=== PATIENT | female | born 1950 | race Two or more races ===

== ENCOUNTER 2024-05-26 21:58 | Inpatient (IN) | payer OTHER ==
[~2024-05-26] VITALS: Ht 157.5 cm; Wt 64.4 kg
[2024-05-26] MEDS ORDERED: PANTOPRAZOLE 40 MG VIAL ONE (22:58)
[2024-05-26 23:00] LABS: BASOPHILS % (AUTO) 0.3 % (0.0-2.0); EOSINOPHILS % (AUTO) 0.5 % (0.0-6.0); HEMATOCRIT 45 % (33-45); HEMOGLOBIN 14.5 g/dL (11.5-14.8); LYMPHOCYTES # (AUTO) 2.2 K/uL (0.8-4.8); LYMPHOCYTES % (AUTO) 25.8 % (20.0-44.0); MEAN CORPUSCULAR HEMOGLOBIN 28 PG (26.0-33.0); MEAN CORPUSCULAR HGB CONC 33 g/dl (31.0-36.0); MEAN CORPUSCULAR VOLUME 87 fL (82-100); MONOCYTES # (AUTO) 0.4 K/uL (0.1-1.30); MONOCYTES % (AUTO) 4.5 % (2.0-12.0); NEUTROPHILS % (AUTO) 68.9 % (43.0-81.0); PLATELET COUNT (AUTO) 287 K/uL (150-450); RED BLOOD CELL COUNT(AUTO) 5.13 MIL/uL (4.0-5.2); RED CELL DISTRIBUTION WIDTH 14.3 % (11.5-15.0); WHITE BLOOD COUNT (AUTO) 8.7 K/uL (4.3-11.0)
[2024-05-26] MEDS ORDERED: ONDANSETRON HCL/PF 4 MG/2 ML VIAL ONE (23:00)
[2024-05-26] MEDS: PANTOPRAZOLE 40 MG VIAL IV ONE (23:13)
[2024-05-26] MEDS: ONDANSETRON HCL/PF - ER 4 MG/2 ML VIAL IV ONE (23:13)
[2024-05-26 23:23] LABS: CALCIUM, SERUM 9.7 mg/dL (8.5-10.1); CARBON DIOXIDE 21 mmol/L (21-32); CHLORIDE 106 mmol/L (98-107); CREATININE 0.8 mg/dL (0.6-1.3); GLUCOSE 154 mg/dL (74-106); POTASSIUM 3.1 mmol/L (3.5-5.1); SODIUM SERUM 142 mmol/L (136-145); UREA NITROGEN, BLOOD 19 mg/dL (7-18)
[2024-05-26 23:32] LABS: ALANINE AMINOTRANSFERASE 24 U/L (12-78); ALBUMIN 3.7 g/dL (3.4-5.0); ALKALINE PHOSPHATASE 82 U/L (46-116); ASPARTATE AMINOTRANSFERASE 19 U/L (15-37); BILIRUBIN,TOTAL 0.8 mg/dL (0.2-1.0); NT-PRO BNP 191 pg/mL (0-125); TOTAL PROTEIN, SERUM 8.2 g/dL (6.4-8.2)
[2024-05-26 23:35] LABS: SALICYLATE 1.4 mg/dL (2.8-20.0)
[2024-05-26 23:36] LABS: ACETAMINOPHEN <10 ug/ml (10-30); ALCOHOL, BLOOD < 10 mg/dL (0-10)
[2024-05-27] MEDS ORDERED: POTASSIUM CL. PREMIX PERIPHER. 50 ML ONE ×2 (00:27→01:43)
[2024-05-27] MEDS ORDERED: Magnesium 1GM/D5W 100ML PREMIX 100 ML IV ONE ×2 (00:31→01:43)
[2024-05-27] MEDS: POTASSIUM CL. PREMIX PERIPHER. 50 ML IV SCH (00:44)
[2024-05-27] MEDS: Magnesium 1GM/D5W 100ML PREMIX 100 ML IV SCH ×3 (00:55→11:39)
[2024-05-27 01:20] LABS: APPEARANCE,URINE CLEAR (CLEAR); BILIRUBIN,URINE NEGATIVE (NEGATIVE); BLOOD, URINE NEGATIVE Ery/uL (NEGATIVE); COLOR,URINE YELLOW (YELLOW); KETONES,URINE NEGATIVE (NEGATIVE); LEUKOCYTE ESTERASE ,URINE 1+ (NEGATIVE); NITRITE, URINE NEGATIVE (NEGATIVE); PH,URINE 5.5 (5.0-8.0); PROTEIN,URINE NEGATIVE (NEGATIVE); UGLUCOSE NEGATIVE (NEGATIVE); UROBILINOGEN,URINE 0.2 EU/dL (0.2)
[2024-05-27 01:27] LABS: ADD URINE CULTURE YES; BACTERIA,URINE Rare /HPF (None Seen); SQUAMOUS EPITHELIAL CELL,UR Few /HPF (None Seen)
[2024-05-27 01:44] LABS: AMPHETAMINE, URINE NEGATIVE (NEGATIVE); BARBITURATE, URINE NEGATIVE (NEGATIVE); BENZODIAZEPINE, URINE NEGATIVE (NEGATIVE); CANNABINOID, URINE NEGATIVE (NEGATIVE); COCCAINE, URINE NEGATIVE (NEGATIVE); OPIATE, URINE NEGATIVE (NEGATIVE); PHENCYCLIDINE SCREEN,URINE NEGATIVE (NEGATIVE)
[2024-05-27] MEDS ORDERED: Z GUARD REMEDY 4 OZ OINT TP PRN (02:30)
[2024-05-27] MEDS ORDERED: ONDANSETRON HCL/PF 4 MG/2 ML VIAL IVP PRN (02:30)
[2024-05-27 06:45] LABS: BASOPHILS % (AUTO) 0.3 % (0.0-2.0); HEMATOCRIT 44 % (33-45); HEMOGLOBIN 14.1 g/dL (11.5-14.8); LYMPHOCYTES # (AUTO) 0.8 K/uL (0.8-4.8); LYMPHOCYTES % (AUTO) 7.6 % (20.0-44.0); MEAN CORPUSCULAR HEMOGLOBIN 28 PG (26.0-33.0); MEAN CORPUSCULAR HGB CONC 32 g/dl (31.0-36.0); MEAN CORPUSCULAR VOLUME 88 fL (82-100); MONOCYTES # (AUTO) 0.5 K/uL (0.1-1.30); MONOCYTES % (AUTO) 5.2 % (2.0-12.0); NEUTROPHILS % (AUTO) 86.9 % (43.0-81.0); PLATELET COUNT (AUTO) 251 K/uL (150-450); RED BLOOD CELL COUNT(AUTO) 4.99 MIL/uL (4.0-5.2); RED CELL DISTRIBUTION WIDTH 14.3 % (11.5-15.0); WHITE BLOOD COUNT (AUTO) 10.3 K/uL (4.3-11.0)
[2024-05-27 06:57] LABS: CALCIUM, SERUM 7.9 mg/dL (8.5-10.1); CARBON DIOXIDE 19 mmol/L (21-32); CHLORIDE 114 mmol/L (98-107); CREATININE 0.7 mg/dL (0.6-1.3); GLUCOSE 128 mg/dL (74-106); POTASSIUM 3.7 mmol/L (3.5-5.1); SODIUM SERUM 142 mmol/L (136-145); UREA NITROGEN, BLOOD 18 mg/dL (7-18)
[2024-05-27 07:11] LABS: ALBUMIN 2.5 g/dL (3.4-5.0); ALKALINE PHOSPHATASE 61 U/L (46-116); ASPARTATE AMINOTRANSFERASE 14 U/L (15-37); BILIRUBIN,TOTAL 0.9 mg/dL (0.2-1.0); TOTAL PROTEIN, SERUM 6.4 g/dL (6.4-8.2)
[2024-05-27 07:12] LABS: ACETAMINOPHEN <10 ug/ml (10-30)
[2024-05-27 07:18] LABS: ALANINE AMINOTRANSFERASE 14 U/L (12-78); ALBUMIN 2.7 g/dL (3.4-5.0); ALKALINE PHOSPHATASE 61 U/L (46-116); ASPARTATE AMINOTRANSFERASE 14 U/L (15-37); BILIRUBIN,DIRECT 0.2 mg/dL (0.0-0.2); BILIRUBIN,TOTAL 0.8 mg/dL (0.2-1.0); CALCIUM, SERUM 8.1 mg/dL (8.5-10.1); CARBON DIOXIDE 20 mmol/L (21-32); CHLORIDE 113 mmol/L (98-107); CREATININE 0.7 mg/dL (0.6-1.3); GLUCOSE 127 mg/dL (74-106); MAGNESIUM 2.4 mg/dL (1.8-2.4); PHOSPHORUS 2.4 mg/dL (2.5-4.9); POTASSIUM 3.7 mmol/L (3.5-5.1); SODIUM SERUM 143 mmol/L (136-145); TOTAL PROTEIN, SERUM 6.4 g/dL (6.4-8.2); UREA NITROGEN, BLOOD 18 mg/dL (7-18)
[2024-05-27 07:29] LABS: ALANINE AMINOTRANSFERASE 22 U/L (12-78)
[2024-05-27 08:00] VITALS: BP 159/87; TEMP 97.5; O2SAT 96
[2024-05-27] MEDS: PANTOPRAZOLE 40 MG VIAL IV SCH (08:06)
[2024-05-27] MEDS ORDERED: clonazePAM 0.5 MG TABLET PO PRN (14:00)
[2024-05-27] MEDS ORDERED: SILVER SULFADIAZINE CREAM 25 GM TUBE TP SCH (15:00)
[2024-05-27 16:00] VITALS: BP 121/67; TEMP 99; O2SAT 99
[2024-05-27] MEDS: SILVER SULFADIAZINE CREAM 25 GM TUBE TP SCH (16:01)
[2024-05-27] MEDS: Sodium Phosphate 15 MMOL in IV NS 0.9% 245 ML IV SCH (16:04)
[2024-05-27 20:00] VITALS: BP 126/75; TEMP 98.2; O2SAT 99
[2024-05-27] MEDS: IV NS 0.9% 1,000 ML IV PRN (21:38)
[2024-05-28 06:36] LABS: BASOPHILS % (AUTO) 0.2 % (0.0-2.0); EOSINOPHILS # (AUTO) 0.1 K/uL (0.0-0.7); EOSINOPHILS % (AUTO) 1.3 % (0.0-6.0); HEMATOCRIT 35 % (33-45); HEMOGLOBIN 11.8 g/dL (11.5-14.8); MEAN CORPUSCULAR HEMOGLOBIN 37 PG (26.0-33.0); MEAN CORPUSCULAR HGB CONC 34 g/dl (31.0-36.0); MEAN CORPUSCULAR VOLUME 108 fL (82-100); MONOCYTES # (AUTO) 0.5 K/uL (0.1-1.30); NEUTROPHILS # (AUTO) 3.8 K/uL (1.8-8.9); NEUTROPHILS % (AUTO) 70.5 % (43.0-81.0); PLATELET COUNT (AUTO) 190 K/uL (150-450); RED BLOOD CELL COUNT(AUTO) 3.19 MIL/uL (4.0-5.2); RED CELL DISTRIBUTION WIDTH 17.4 % (11.5-15.0); WHITE BLOOD COUNT (AUTO) 5.5 K/uL (4.3-11.0)
[2024-05-28 07:19] LABS: CALCIUM, SERUM 8.8 mg/dL (8.5-10.1); CARBON DIOXIDE 24 mmol/L (21-32); CHLORIDE 108 mmol/L (98-107); CREATININE 0.6 mg/dL (0.6-1.3); GLUCOSE 93 mg/dL (74-106); MAGNESIUM 2.5 mg/dL (1.8-2.4); PHOSPHORUS 3.5 mg/dL (2.5-4.9); POTASSIUM 3.9 mmol/L (3.5-5.1); SODIUM SERUM 143 mmol/L (136-145); UREA NITROGEN, BLOOD 12 mg/dL (7-18)
[2024-05-28 08:30] LABS: ALBUMIN 2.4 g/dL (3.4-5.0); BILIRUBIN,DIRECT 0.1 mg/dL (0.0-0.2); BILIRUBIN,TOTAL 0.8 mg/dL (0.2-1.0); TOTAL PROTEIN, SERUM 5.9 g/dL (6.4-8.2)
[2024-05-28] MEDS: ESCITALOPRAM OXALATE (10 MG) 10 MG TABLET PO SCH (08:46)
== END 2024-05-28 10:20 | disposition left against medical advice (07) | DRG 918 ==
LOC: ER 21:59 → TELE 05-27 03:54 → MED 05-27 05:11
PROVIDERS: ADMIT Nurse Practitioner Family; ATTEND Internal Medicine
PROC: 2W24X4Z Dressing of Chest Wall using Bandage (ICD-10-PCS; principal; 2024-05-27)
DX: T54.92XA Toxic effect of unspecified corrosive substance, intentional self-harm, initial encounter (principal); F32.2 Major depressive disorder, single episode, severe without psychotic features; T48.3X2A Poisoning by antitussives, intentional self-harm, initial encounter; K20.80 Other esophagitis without bleeding; Y92.039 Unspecified place in apartment as the place of occurrence of the external cause; T21.61XA Corrosion of second degree of chest wall, initial encounter; T24.611A Corrosion of second degree of right thigh, initial encounter; Z53.29 Procedure and treatment not carried out because of patient's decision for other reasons; E87.6 Hypokalemia; R79.89 Other specified abnormal findings of blood chemistry; Z79.899 Other long term (current) drug therapy; Z63.9 Problem related to primary support group, unspecified; R11.2 Nausea with vomiting, unspecified; F43.10 Post-traumatic stress disorder, unspecified; K20.90 Esophagitis, unspecified without bleeding; Z53.8 Procedure and treatment not carried out for other reasons
CPT/HCPCS: 36415; 71045-TC; 80048-TC; 80053-TC; 80076-TC; 81001; 83735-TC; 83880; 84100-TC; 84443-TC; 84484-TC; 85025-TC; 87086-TC; 98960; A4223; A9563; G0378; G0480; J2405; J2470; J3475; J3480; J7030; J7050